=== PATIENT | male | born 1990 | race African-American/Black ===

== ENCOUNTER 2019-06-06 01:49 | Emergency (ER) | payer OTHER ==
[~2019-06-06] VITALS: Ht 172.7 cm; Wt 54.4 kg
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
--- NOTE | 2019-06-06 02:00 | NUR ---
Dr. Younger at bedside for MSE.
[2019-06-06] MEDS ORDERED: TDAP DIPH,PERTUSS,TET VAC/PF 0.5 ML DISP.SYRIN IM ONE ×2 (02:04→02:15)
--- NOTE | 2019-06-06 02:17 | NUR ---
Xray at bedside.
[2019-06-06] MEDS ORDERED: NEOMY/BACITRA/POLYMYXIN B OINT UD PACKET TP ONE ×2 (02:30→02:33)
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
[2019-06-06 03:19] VITALS: BP 114/67
== END 2019-06-06 03:20 ==
LOC: ER 01:57 → EDBD 01:57 → ER 03:20
DX: S51.852A Open bite of left forearm, initial encounter (principal); W54.0XXA Bitten by dog, initial encounter; Y93.89 Activity, other specified; Y92.89 Other specified places as the place of occurrence of the external cause; Y99.8 Other external cause status
CPT/HCPCS: 73080; 90715; A4217; A4663